=== PATIENT | female | born 1965 | race Caucasian/White ===

== ENCOUNTER 2018-11-01 18:20 | Inpatient (IN) | payer BC ==
[~2018-11-01] VITALS: Ht 162.6 cm; Wt 73.7 kg
--- NOTE | 2018-11-01 18:33 | NUR ---
Pt BIB EMS from [facility] for sudden onset ALOC. Per EMS report, pt last known well was 1644. At approx 1500, pt sat up and stated she was confused. Pt has had repetitive questioning, alert and oriented to self only. No focal weakness or other neuro deficits. No drifts, droops, or weakness. Mild LUZ to R occipital. No nausea. Eyes PERRL. VSS. HTN.
[2018-11-01] MEDS: PLEASE ENTER ALLERGIES MC SCH (18:46)
--- NOTE | 2018-11-01 18:49 | NUR ---
Pt to CT
[2018-11-01 18:53] LABS: BASOPHILS # (AUTO) 0.02 x10^3/uL (0-0.1); BASOPHILS % (AUTO) 0 % (0-1); EOSINOPHILS # (AUTO) 0.11 x10^3/uL (0-0.4); EOSINOPHILS % (AUTO) 2 % (1-7); LYMPHOCYTES # (AUTO) 3.03 x10^3/uL (1-3.4); LYMPHOCYTES % (AUTO) 43 % (22-44); MD NO; MEAN CORPUSCULAR HEMOGLOBIN 31.5 pg (27.0-34.8); MEAN CORPUSCULAR VOLUME 92.5 fL (80-100); MEAN PLATELET VOLUME 8.1 fL (7.4-10.4); MONOCYTES # (AUTO) 0.63 x10^3/uL (0.2-0.8); MONOCYTES % (AUTO) 9 % (2-9); NEUTROPHILS # (AUTO) 3.24 x10^3/uL (1.8-6.8); NEUTROPHILS % (AUTO) 46 % (42-75); PLATELET COUNT 230 x10^3/uL (130-400); RED BLOOD COUNT 4.32 x10^6/uL (3.82-5.3); RED CELL DISTRIBUTION WIDTH 13.8 % (9.6-15.2)
[2018-11-01 19:00] LABS: INTERNATIONAL NORMALIZED RATIO 1.01 (0.93-1.1); PROTHROMBIN TIME 10.7 Seconds (9.6-11.5)
[2018-11-01] MEDS ORDERED: SODIUM CHLORIDE FLUSH 10ML SYR IVF ONE (19:00)
--- NOTE | 2018-11-01 19:03 | NUR ---
Report to [facility]. Pt ambulated to BR with daughter in law and RN, steady gait.
--- NOTE | 2018-11-01 19:15 | NUR ---
PT BEDSIDE REPORT FROM KEVIN RN. THIS RN TO ASSUME CARE OF PT. PT AMB TO RR W/ STEADY GAIT AND PROVIDED UA. A+Ox4 AT THIS TIME. PT STILL MILDLY CONFUSED AND REPEATING THE SAME QUESTIONS EVERY SO OFTEN. VSS. CALL LIGHT WITHIN REACH. PT TBADM PER MD ORDER. AWAITING ADMIT ORDER.
[2018-11-01 19:30] LABS: CULTURE INDICATED? YES; MICROSCOPIC INDICATED
[2018-11-01] MEDS ORDERED: ACETAMINOPHEN 325 MG TABLET ONE (19:35)
--- NOTE | 2018-11-01 19:39 | NUR ---
PT STATES A MILD LUZ AND WOULD LIKE TYLENOL. NOTIFIED. ORDERED 650 MG TYLENOL. THIS RN TO ADMIN.
[2018-11-01 19:43] LABS: AMPHETAMINE SCREEN, URINE Negative (Negative); BARBITURATE SCREEN, URINE Negative (Negative); BENZODIAZEPINE SCREEN, URINE Negative (Negative); CANNABINOID SCREEN, URINE Negative (Negative); COCAINE SCREEN, URINE Negative (Negative); METHADONE SCREEN, URINE Negative (Negative); OPIATE SCREEN, URINE Negative (Negative)
[2018-11-01 19:58] LABS: ANION GAP 11 mmol/L (5-15); CALCIUM 9.4 mg/dL (8.5-10.1); CHLORIDE 106 mmol/L (98-107)
[2018-11-01] MEDS ORDERED: ACETAMINOPHEN 325 MG TABLET PO ONE (20:00)
[2018-11-01 20:03] LABS: ALANINE AMINOTRANSFERASE 27 U/L (12-78); ALKALINE PHOSPHATASE 70 U/L (45-117); BILIRUBIN,TOTAL 0.4 mg/dL (0.2-1.0); CREATININE 0.89 mg/dL (0.55-1.02); TOTAL PROTEIN 7.2 g/dL (6.4-8.2); TROPONIN I < 0.015 ng/mL (0.000-0.045)
--- NOTE | 2018-11-01 20:22 | NUR ---
PT CONTINUES TO BE A+Ox4. BUT PERSISTENTLY REQUIRING REORIENTATION TO SERIES OF EVENTS TODAY PRIOR TO HOSPITALIZATION AND TO STAFF. VSS. CALL LIGHT WITHIN REACH. DAUGHTER AT BEDSIDE.
--- NOTE | 2018-11-01 20:24 | NUR ---
ALL RESULTS BACK. AWAITING ADM ORDERS.
[2018-11-01] MEDS ORDERED: SODIUM CHLORIDE FLUSH 10ML SYR IVF PRN (20:30)
[2018-11-01] MEDS ORDERED: POLYETHYLENE GLYCOL 17 GM PACKET PO PRN (21:30)
[2018-11-01] MEDS ORDERED: ONDANSETRON ODT 4 MG PO PRN (21:30)
[2018-11-01] MEDS ORDERED: BISACODYL 10 MG SUPP PR PRN (21:30)
[2018-11-01] MEDS: NICOTINE 14MG/24 HR PATCH.TD24 TD SCH (21:30)
[2018-11-01] MEDS ORDERED: hydrALAzine 20 MG/ML, 1ML IVPush PRN (21:30)
[2018-11-01 21:45] LABS: FOLATE LEVEL > 20.0 ng/mL (3.1-17.5)
[2018-11-01 22:14] LABS: FREE T4 (FREE THYROXINE) 1.18 ng/dL (0.76-1.46)
[2018-11-01] MEDS: HEPARIN 5,000 UNITS/ML, 1ML SQ SCH (22:38)
[2018-11-01] MEDS: CEFTRIAXONE PMX 1GM/50ML 50 ML IV SCH (22:38)
[2018-11-01] MEDS: SODIUM CHLORIDE FLUSH 10ML SYR IVF SCH (22:39)
[2018-11-01 23:30] VITALS: BP 158/98
[2018-11-02 00:12] VITALS: BP 149/86
[2018-11-02] MEDS: ACETAMINOPHEN 325 MG TABLET PO PRN ×3 (00:13→11:46)
[2018-11-02] MEDS: PLEASE ENTER ALLERGIES MC SCH ×2 (03:00→11:00)
[2018-11-02 04:00] VITALS: BP 133/89
[2018-11-02 05:33] LABS: BASOPHILS # (AUTO) 0.01 x10^3/uL (0-0.1); BASOPHILS % (AUTO) 0 % (0-1); EOSINOPHILS # (AUTO) 0.09 x10^3/uL (0-0.4); EOSINOPHILS % (AUTO) 1 % (1-7); LYMPHOCYTES # (AUTO) 2.46 x10^3/uL (1-3.4); LYMPHOCYTES % (AUTO) 38 % (22-44); MD NO; MEAN CORPUSCULAR HEMOGLOBIN 31.2 pg (27.0-34.8); MEAN CORPUSCULAR HGB CONC 33.7 g/dL (32.4-35.8); MEAN CORPUSCULAR VOLUME 92.8 fL (80-100); MEAN PLATELET VOLUME 8.1 fL (7.4-10.4); MONOCYTES # (AUTO) 0.52 x10^3/uL (0.2-0.8); MONOCYTES % (AUTO) 8 % (2-9); NEUTROPHILS # (AUTO) 3.36 x10^3/uL (1.8-6.8); NEUTROPHILS % (AUTO) 52 % (42-75); PLATELET COUNT 213 x10^3/uL (130-400); RED BLOOD COUNT 4.35 x10^6/uL (3.82-5.3); RED CELL DISTRIBUTION WIDTH 13.9 % (9.6-15.2)
[2018-11-02] MEDS: HEPARIN 5,000 UNITS/ML, 1ML SQ SCH ×3 (05:37→21:45)
[2018-11-02 05:40] LABS: ALBUMIN 3.7 g/dL (3.4-5.0); ANION GAP 8 mmol/L (5-15); CHLORIDE 107 mmol/L (98-107); CHOLESTEROL, TOTAL 237 mg/dL (140-239); CREATININE 0.78 mg/dL (0.55-1.02)
[2018-11-02 05:45] LABS: ALANINE AMINOTRANSFERASE 28 U/L (12-78); ALKALINE PHOSPHATASE 67 U/L (45-117); BILIRUBIN,TOTAL 0.6 mg/dL (0.2-1.0); CHOL/HDL RATIO 3.6; HDL CHOL % 28 % (28-40); HDL CHOLESTEROL (DIRECT) 66 mg/dL (40-60); LDL CHOLESTEROL,CALCULATED 143 mg/dL (54-169); LDL/HDL RATIO 2.2 (0.5-3.0); TRIGLYCERIDES 142 mg/dL (50-200); VLDL CHOLESTEROL 28 mg/dL (0-25)
[2018-11-02] MEDS: SENNA/DOCUSATE TABLET PO SCH (07:58)
[2018-11-02] MEDS: SODIUM CHLORIDE FLUSH 10ML SYR IVF SCH ×2 (07:59→21:45)
[2018-11-02 08:18] VITALS: BP 136/91
[2018-11-02 13:59] VITALS: BP 152/106
[2018-11-02 14:14] VITALS: BP 142/83
[2018-11-02] MEDS ORDERED: GADOBUTROL 7.5 MMOL/7.5 ML PFS ONE (18:08)
[2018-11-02] MEDS ORDERED: OMNIPAQUE 350 MG/ML, 100ML BOTTLE ONE (18:29)
[2018-11-02 19:41] VITALS: BP 134/75
[2018-11-02] MEDS: NICOTINE 14MG/24 HR PATCH.TD24 TD SCH (20:03)
[2018-11-02] MEDS: CEFTRIAXONE PMX 1GM/50ML 50 ML IV SCH (21:45)
[2018-11-03 00:11] VITALS: BP 113/77
[2018-11-03] MEDS: HEPARIN 5,000 UNITS/ML, 1ML SQ SCH (04:54)
[2018-11-03 05:03] LABS: BASOPHILS # (AUTO) 0.02 x10^3/uL (0-0.1); BASOPHILS % (AUTO) 0 % (0-1); EOSINOPHILS # (AUTO) 0.11 x10^3/uL (0-0.4); EOSINOPHILS % (AUTO) 2 % (1-7); LYMPHOCYTES # (AUTO) 2.16 x10^3/uL (1-3.4); LYMPHOCYTES % (AUTO) 40 % (22-44); MD NO; MEAN CORPUSCULAR HEMOGLOBIN 31.5 pg (27.0-34.8); MEAN CORPUSCULAR VOLUME 92.5 fL (80-100); MONOCYTES # (AUTO) 0.44 x10^3/uL (0.2-0.8); MONOCYTES % (AUTO) 8 % (2-9); NEUTROPHILS # (AUTO) 2.75 x10^3/uL (1.8-6.8); NEUTROPHILS % (AUTO) 50 % (42-75); PLATELET COUNT 209 x10^3/uL (130-400); RED BLOOD COUNT 4.41 x10^6/uL (3.82-5.3); RED CELL DISTRIBUTION WIDTH 13.5 % (9.6-15.2)
[2018-11-03 05:07] LABS: ALANINE AMINOTRANSFERASE 25 U/L (12-78); ALBUMIN 3.5 g/dL (3.4-5.0); ANION GAP 7 mmol/L (5-15); CALCIUM 8.7 mg/dL (8.5-10.1); CHLORIDE 109 mmol/L (98-107); CREATININE 0.84 mg/dL (0.55-1.02)
[2018-11-03 05:09] LABS: ALKALINE PHOSPHATASE 65 U/L (45-117); BILIRUBIN,TOTAL 0.6 mg/dL (0.2-1.0); TOTAL PROTEIN 6.8 g/dL (6.4-8.2)
[2018-11-03 07:30] VITALS: BP 96/67
[2018-11-03] MEDS: SODIUM CHLORIDE FLUSH 10ML SYR IVF SCH (09:00)
[2018-11-03] MEDS: SENNA/DOCUSATE TABLET PO SCH (09:00)
[2018-11-03] MEDS ORDERED: CEFD300C37 PO (11:03)
[2018-11-03] MEDS ORDERED: CYAN250013 PO-COUM (11:08)
[2018-11-03] MEDS ORDERED: CEFTRIAXONE PMX 1GM/50ML 50 ML IV SCH (11:30)
== END 2018-11-03 13:54 | disposition home or self-care (01) | DRG 71 ==
LOC: ED 20:25 → 4WST 20:27 → ED 21:00 → 4WST 11-02 17:40 → DCLOUNGE 11-03 13:54
PROVIDERS: ADMIT Internal Medicine; ATTEND Internal Medicine
DX: G45.4 Transient global amnesia (principal); N39.0 Urinary tract infection, site not specified; G43.909 Migraine, unspecified, not intractable, without status migrainosus; F41.9 Anxiety disorder, unspecified; Z90.49 Acquired absence of other specified parts of digestive tract; F17.210 Nicotine dependence, cigarettes, uncomplicated; E53.8 Deficiency of other specified B group vitamins
CPT/HCPCS: 36415; 70450; 70496; 70553; 71045; 80053; 80061; 80307; 81001; 82140; 82607; 82746; 82962; 83735; 84100; 84439; 84443; 84484; 85025; 85610; 85730; 87086; 93005; 93880; 95819; 99285; A9585; G0378; J0696; J1644; Q9967